=== PATIENT | female | born 1985 | race Caucasian/White ===

== ENCOUNTER 2020-03-04 11:05 | Emergency (ER) | payer SELFPAY ==
[2020-03-04 11:11] VITALS: BP 117/79; PULSE 89; RESP 14; TEMP 36.8; O2SAT 100
--- NOTE | 2020-03-04 11:25 | ED.GENADULT ---
HPI - General Adult General Chief complaint: Upper Respiratory Infection Stated complaint: trouble breathing Time Seen by Provider: 03/04/20 11:26 Source: patient and RN notes reviewed Mode of arrival: ambulatory Limitations: no limitations History of Present Illness HPI narrative: This is a 34 years old female presents to the office for an evaluation of intermittent shortness of breath for 1 week. Symptoms are worse when she is outside with the mask on. She also reported that she have more trouble breathing when she is at work, she works at the warehouse. She is a smoker however she has not been smoking since she has just symptoms. Denies shortness of breath. She does not have a primary care doctor. Denies history of lung cancer in the family. Related Data Allergies Allergy/AdvReac Type Severity Reaction Status Date / Time No Known Allergies Allergy Verified 03/04/20 11:20 Review of Systems Review of Systems: Narrative: CONSTITUTIONAL: Denies fever or feeling ill ENT: Reports head congestion/stuffy nose especially at night time. CARDIOVASCULAR: Denies chest pain RESPIRATORY: Reports dyspnea,cough without wheezing GASTROINTESTINAL: Denies abdominal pain, nausea, vomiting GENITOURINARY: Denies urinary symptoms SKIN: Denies rash MUSCULOSKELETAL: Denies acute back pain NEUROLOGIC: Denies lightheaded. Reports headache at night time. PMFSH Social History Social History (Updated 03/04/20 @ 11:51 by CORINNA Alegria) Years smoked: 12 Smoking status: Current every day smoker Comments At time of signature, I agree with nursing past medical, surgical, social and family history. There is no relevant family history pertinent to the presenting complaint. Exam Narrative: Exam Narrative: GENERAL: This is a well-nourished, well-developed patient, in no apparent distress. EYES: Sclera clear/white. Vision is grossly intact. EARS: External ears normal, auditory canals clear and without drainage, TMs normal without perforation. Hearing grossly intact. NOSE: External nose normal with no obvious nasal discharge, nares without redness, no rhinorrhea. THROAT: Mucous membranes moist, posterior pharynx clear. NECK: Neck supple, non-tender without lymphadenopathy, masses or thyromegaly. CARDIOVASCULAR: Regular rate and rhythm without murmurs, gallops, or rubs. RESPIRATORY: Clear to auscultation. Breath sounds equal bilaterally. No wheezes, rales, or rhonchi. GASTROINTESTINAL: Abdomen soft, non-tender, nondistended. Bowel sounds are active. No guarding. SKIN: warm, intact with no suspicious lesions or rash, good texture and turgor. NEURO: awake, alert, and oriented to person, place and time. There were no obvious focal neurologic abnormalities. Steady gait [place] Coma Scale Eye Opening: Spontaneous 4 Ema Coma Scale Motor: Obeys Commands 6 [place] Coma Scale Verbal: Oriented 5 Course Vital Signs Vital signs: Vital Signs Temperature 98.2 F 03/04/20 11:11 Pulse Rate 89 03/04/20 11:11 Respiratory Rate 14 03/04/20 11:11 Blood Pressure 117/79 03/04/20 11:11 Pulse Oximetry 100 03/04/20 11:11 Temperature 98.2 F 03/04/20 11:11 Pulse Rate 89 03/04/20 11:11 Respiratory Rate 14 03/04/20 11:11 Blood Pressure 117/79 03/04/20 11:11 Pulse Oximetry 100 03/04/20 11:11 Medical Decision Making MDM Narrative Medical decision making narrative: Discharge instructions reviewed with patient, as well as provided in writing per nursing staff. The instructions also include specific and strict return/GO TO THE ER as well as f/u information. All questions have been answered, and the patient deny any further questions with discharge and discharge plan. Differential Diagnosis Differential Diagnosis: pneumonia, Allergic Rhinitis, Upper respiratory cough syndrome, Pharyngitis, Sinusitis, Bronchitis, otitis media, viral URI, Asthma/reactive airway disease, influenza Vital Signs Vital Signs: Vital Signs
== END 2020-03-04 11:54 | disposition home or self-care (01) ==
PROVIDERS: Emergency Provider Nurse Practitioner
DX: J45.20 Mild intermittent asthma, uncomplicated (principal); F17.210 Nicotine dependence, cigarettes, uncomplicated
CPT/HCPCS: 99203; G0463